=== PATIENT | female | born 1990 ===

== ENCOUNTER → 2024-05-30 | Outpatient (CLI) | payer SELFPAY | LOC: LAB 17:21 → LAB SHORT 17:21 | DX: Z11.3 Encounter for screening for infections with a predominantly sexual mode of transmission (principal) | CPT/HCPCS: 86592 ==

== ENCOUNTER → 2024-06-12 | Outpatient (CLI) | payer SELFPAY ==
[2024-06-19 20:06] LABS: HPV HIGH RISK BY TMA Not Detected; HPV SOURCE Cervical
== END | disposition home or self-care (01) ==
LOC: LAB SHORT 17:20
PROVIDERS: Physician Assistant
DX: Z01.419 Encounter for gynecological examination (general) (routine) without abnormal findings (principal)
CPT/HCPCS: 87624; G0123